=== PATIENT | female | born 1990 | race Caucasian/White ===

== ENCOUNTER 2019-11-02 16:12 | Emergency (ER) | payer OTHER ==
[~2019-11-02] VITALS: Ht 165.1 cm; Wt 52.2 kg
[2019-11-02] MEDS ORDERED: ZITHROMAX500 MG PO (20:25)
[2019-11-02] MEDS ORDERED: IPRAT-ALBUT 0.5-3 ML IH (20:25)
[2019-11-02] MEDS ORDERED: TUSNEL LIQUID178 ML PO (20:25)
[2019-11-02] MEDS ORDERED: DOLOGEN CAPLET1 EACH PO (20:25)
== END 2019-11-02 21:33 | disposition home or self-care (01) ==
LOC: ER 16:12
DX: J06.9 Acute upper respiratory infection, unspecified (principal)

== ENCOUNTER 2020-05-25 15:13 | Outpatient (CLI) | payer OTHER ==
[~2020-05-25 15:13] MED LIST: DOLOGEN CAPLET1 EACH PO; IPRAT-ALBUT 0.5-3 ML IH; TUSNEL LIQUID178 ML PO; ZITHROMAX500 MG PO
== END 2020-05-25 18:04 | disposition home or self-care (01) ==
LOC: LAB 15:13
DX: R05 Cough (principal); Z20.828 Contact with and (suspected) exposure to other viral communicable diseases; R50.9 Fever, unspecified